=== PATIENT | male | born 1995 | race Native Hawaiian/Other Pacific Islander ===

== ENCOUNTER 2017-09-23 14:52 | Emergency (ER) | payer OTHER ==
[~2017-09-23] VITALS: Ht 177.8 cm; Wt 104.3 kg
== END 2017-09-23 19:23 | disposition home or self-care (01) ==
LOC: ED 14:52
DX: M79.671 Pain in right foot (principal); S90.31XA Contusion of right foot, initial encounter
CPT/HCPCS: 99282

== ENCOUNTER 2018-03-07 16:20 | Emergency (ER) | payer OTHER ==
[~2018-03-07] VITALS: Ht 180.3 cm; Wt 104.3 kg
[2018-03-07 19:55] VITALS: BP 131/84; TEMP 98.1
== END 2018-03-07 20:01 | disposition home or self-care (01) ==
LOC: ED 16:20
PROC: 0JCJ0ZZ Extirpation of Matter from Right Hand Subcutaneous Tissue and Fascia, Open Approach (ICD-10-PCS; principal; 2018-03-07)
DX: S61.041A Puncture wound with foreign body of right thumb without damage to nail, initial encounter (principal); W29.8XXA Contact with other powered hand tools and household machinery, initial encounter
CPT/HCPCS: 90715; 99282; J7040

== ENCOUNTER 2021-08-05 19:49 | Emergency (ER) | payer OTHER ==
[~2021-08-05] VITALS: Ht 180.3 cm; Wt 104.3 kg
[2021-08-05 21:28] LABS: PLATELET COUNT 155 K/uL (142-355)
[2021-08-05 21:37] LABS: POTASSIUM 4.6 mmol/L (3.6-5.2)
[2021-08-06 01:35] VITALS: BP 123/88; TEMP 98.2
== END 2021-08-06 01:38 | disposition home or self-care (01) ==
LOC: ED 19:49
PROVIDERS: Family Medicine
DX: S91.332A Puncture wound without foreign body, left foot, initial encounter (principal); M79.672 Pain in left foot; W45.0XXA Nail entering through skin, initial encounter; Y92.098 Other place in other non-institutional residence as the place of occurrence of the external cause
CPT/HCPCS: 80053; 84550; 85027; 90471; 96372; 99283; J1885; J2550